=== PATIENT | female | born 1955 | race Caucasian/White ===

== ENCOUNTER 2019-04-08 14:27 | Emergency (ER) | payer OTHER | END 2019-04-08 15:24 | disposition home or self-care (01) | LOC: SCSER 14:27 | DX: M96.840 Postprocedural hematoma of a musculoskeletal structure following a musculoskeletal system procedure (principal); I10 Essential (primary) hypertension; F31.9 Bipolar disorder, unspecified | CPT/HCPCS: 99283 ==